=== PATIENT | male | born 1995 | race Caucasian/White ===

== ENCOUNTER 2016-07-09 22:05 | Inpatient (IN) | payer OTHER ==
[~2016-07-09] VITALS: Ht 182.9 cm; Wt 72.8 kg
--- NOTE | 2016-07-09 22:41 | PD ---
HPI Chief Complaint: Psychiatric Symptoms Time Seen by Provider: 22:36 Travel History International Travel<30 days: No Contact w/Intl Traveler<30days: No History of Present Illness HPI Patient is a 20 year old male who presents to ER under rodriguez act. Patient reports that his father committed suicide 2 days ago, that he to his girlfriend yesterday and made a comment that he wanted to hurt himself. Patient reports that today, he went to his fraternity brother's house to talk, [place] that the park police [place] his house as his girlfriend called the home designer. Patient denies suicidal or homicidal ideations at this time. Patient reports that "I was just depressed but I have too much going on for me to hurt myself." Denies si/hi. Denies use of drugs/alcohol. PFSH Social History Alcohol Use: No Tobacco Use: No Allergies-Medications (Allergen,Severity, Reaction): Coded Allergies: Peanut (Verified Allergy, Severe, Anaphylaxis, 07/09/16) Sulfamethoxazole (Verified Allergy, Intermediate, Hives, 07/09/16) Review of Systems General / Constitutional: No: Fever Eyes: No: Visual changes HENT: No: Headaches Cardiovascular: No: Chest Pain or Discomfort Respiratory: No: Shortness of Breath Gastrointestinal: No: Abdominal Pain Genitourinary: No: Dysuria Musculoskeletal: No: Pain Skin: No Rash Neurologic: No: Weakness Psychiatric: Positive: Depression, No: Anxiety, Suicidal Ideations, Substance Abuse, Homicidal Ideation Endocrine: No: Polydipsia Hematologic/Lymphatic: No: Easy Bruising Physical Exam Narrative GENERAL: nad, nontoxic SKIN: Focused skin assessment warm/dry. HEAD: Atraumatic. Normocephalic. EYES: Pupils equal and round. No scleral icterus. No injection or drainage. ENT: No nasal bleeding or discharge. Mucous membranes pink and moist. NECK: Trachea midline. No JVD. CARDIOVASCULAR: Regular rate and rhythm. No murmur appreciated. RESPIRATORY: No accessory muscle use. Clear to auscultation. Breath sounds equal bilaterally. GASTROINTESTINAL: Abdomen soft, non-tender, nondistended. Hepatic and splenic margins not palpable. MUSCULOSKELETAL: No obvious deformities. No clubbing. No cyanosis. No edema. NEUROLOGICAL: Awake and alert. No obvious cranial nerve deficits. Motor grossly within normal limits. Normal speech. PSYCHIATRIC: Appropriate mood and affect; insight and judgment normal. Data Data Last Documented VS Vital Signs Date Time Temp Pulse Resp B/P Pulse Ox O2 Delivery O2 Flow Rate FiO2 07/09/16 22:46 98.0 70 16 106/57 100 Orders Complete Blood Count With Diff (07/09/16 22:36) Comprehensive Metabolic Panel (07/09/16 22:36) Psych Screen (07/09/16 22:36) Drug Screen, Random Urine (07/09/16 22:36) Labs Laboratory Tests Test 07/09/16 07/09/16 22:36 22:40 White Blood Count 5.4 TH/MM3 Red Blood Count 5.19 MIL/MM3 Hemoglobin 15.2 GM/DL Hematocrit 44.5 % Mean Corpuscular Volume 85.7 FL Mean Corpuscular Hemoglobin 29.2 PG Mean Corpuscular Hemoglobin 34.1 % Concent Red Cell Distribution Width 13.5 % Platelet Count 219 TH/MM3 Mean Platelet Volume 9.0 FL Neutrophils (%) (Auto) 49.4 % Lymphocytes (%) (Auto) 36.9 % Monocytes (%) (Auto) 10.5 % Eosinophils (%) (Auto) 2.7 % Basophils (%) (Auto) 0.5 % Neutrophils # (Auto) 2.7 TH/MM3 Lymphocytes # (Auto) 2.0 TH/MM3 Monocytes # (Auto) 0.6 TH/MM3 Eosinophils # (Auto) 0.1 TH/MM3 Basophils # (Auto) 0.0 TH/MM3 CBC Comment DIFF FINAL Differential Comment Sodium Level 138 MEQ/L Potassium Level 3.9 MEQ/L Chloride Level 103 MEQ/L Carbon Dioxide Level 29.0 MEQ/L Anion Gap 6 MEQ/L Blood Urea Nitrogen 15 MG/DL Creatinine 1.13 MG/DL Estimat Glomerular Filtration 82 ML/MIN Rate Random Glucose 94 MG/DL Calcium Level 9.0 MG/DL Total Bilirubin 0.7 MG/DL Aspartate Amino Transf 14 U/L (AST/SGOT) Alanine Aminotransferase 23 U/L (ALT/SGPT) Alkaline Phosphatase 124 U/L Total Protein 8.2 GM/DL Albumin 4.3 GM/DL Urine Opiates Screen NEG Urine Barbiturates Screen NEG Urine Amphetamines Screen NEG Urine Benzodiazepines Screen NEG Urine Cocaine Screen NEG Urine Cannabinoids Screen NEG MDM Medical Decision Making Medical Screen Exam Complete: Yes Emergency Medical Condition: Yes Differential Diagnosis rodriguez act for suicidal idealations, depression Narrative Course Patient is a 20-year-old male who presents to emergency room under Rodriguez act for suicidal statement. Patient reports that his father committed suicide 2 days ago, reports that he made a comment to his girlfriend yesterday that he wanted to hurt himself. Patient reports that he did not mean it, reports that he was just frustrated. [place] today and placed him under Rodriguez act and made him come to the emergency room for evaluation. Patient denies SI or HI at this time. Patient denies drugs or alcohol. Patient here for evaluation under Rodriguez act. Marion Bella DO Jul 09, 2016 22:41
[2016-07-09 22:46] VITALS: BP 106/57; PULSE 70; RESP 16; TEMP 98; O2SAT 100
[2016-07-09 23:01] LABS: AUTOMATED NEUTROPHIL # 2.7 TH/MM3 (1.8-7.7); BASOPHIL % 0.5 % (0.0-2.0); EOSINOPHIL # 0.1 TH/MM3 (0-0.4); EOSINOPHIL % 2.7 % (0.0-4.0); HEMATOCRIT 44.5 % (39.0-51.0); HEMO FLAGS DIFF FINAL; LYMPH % 36.9 % (9.0-44.0); MEAN CELL VOLUME 85.7 FL (80.0-100.0); MEAN CORPUSCULAR HEMOGLOBIN 29.2 PG (27.0-34.0); MEAN CORPUSCULAR HGB CONC 34.1 % (32.0-36.0); MONO % 10.5 % (0.0-8.0); NEUT % 49.4 % (16.0-70.0); PLATELET COUNT 219 TH/MM3 (150-450); RED BLOOD COUNT 5.19 MIL/MM3 (4.50-5.90); RED CELL DISTRIBUTION WIDTH 13.5 % (11.6-17.2); WHITE BLOOD COUNT 5.4 TH/MM3 (4.0-11.0)
[2016-07-09 23:06] LABS: AMPHETAMINE, URINE NEG (NEG); BARBITURATES, URINE NEG (NEG); COCAINE, URINE NEG (NEG)
[2016-07-09 23:30] LABS: ANION GAP 6 MEQ/L (5-15); BLOOD UREA NITROGEN 15 MG/DL (7-18); CHLORIDE 103 MEQ/L (98-107); GLOMERULAR FILTRATION RATE 82 ML/MIN (>89); POTASSIUM 3.9 MEQ/L (3.5-5.1); SODIUM (NA) 138 MEQ/L (136-145)
[2016-07-09 23:34] LABS: ALKALINE PHOSPHATASE 124 U/L (45-117); ALT (GPT) 23 U/L (12-78); AST (GOT) 14 U/L (15-37); TOTAL BILIRUBIN ADULT 0.7 MG/DL (0.2-1.0)
[2016-07-10 00:36] VITALS: BP 136/70; PULSE 67; RESP 18; O2SAT 100
[2016-07-10 01:57] VITALS: BP 129/75; PULSE 61; RESP 18; O2SAT 96
[2016-07-10 06:05] VITALS: BP 111/59; PULSE 57; RESP 18; O2SAT 99
[2016-07-10 11:00] VITALS: BP 123/58; PULSE 60; RESP 18
[2016-07-10 12:45] VITALS: BP 138/67; PULSE 63; RESP 16; TEMP 97.8; O2SAT 100
--- NOTE | 2016-07-11 11:27 | HHI.HP ---
Provisional Diagnosis Admission Date Jul 10, 2016 at 11:56 Sheldon I. Unspecified psychosis Sheldon II. Deferred Sheldon III. No medical history Sheldon IV. Final exams in college Sheldon V. 55 Certification of Person's Competence To Provide Express and Informed Consent I have personally examined Joel Araujo , a person being served at [facility] on, Jul 11, 2016 11:09. Express and informed consent means consent voluntarily given in writing, by a competent person, after sufficient explanation and disclosure of the subject matter involved to enable the person to make a knowing and willful decision without any element of force, fraud, deceit, duress, or other form of constraint or coercion. This person is 18 years of age or older, is not now known to be incompetent to consent to treatment with a guardian advocate, and does not have a health care surrogate or proxy currently making medical treatment decisions. I have found this person to be one of the following: [X] Competent to provide express and informed consent, as defined above, for voluntary admission to this facility and is competent to provide express and informed consent for treatment. He/she has the consistent capacity to make well reasoned, willful, and knowing decisions concerning his or her medical or mental health treatment. The person fully and consistently understands the purpose of the admission for examination/placement and is fully capable of personally exercising all rights assured [place] Incompetent to provide express and informed consent to voluntary admission, and this is incompetent to provide express and informed consent to treatment. The person must be transferred to involuntary status and a petition for a guardian advocate filed with the Circuit Court. [] Refusing to provide express and informed consent to voluntary admission but is competent to provide express and informed consent for treatment. The person must be discharged or transferred to involuntary status. Form shall be completed within 24 hours of a person's arrival at the receiving facility and filed in the clinical record of each person: 1. Admitted on a voluntary basis 2. Permitted to provide express and informed consent to his/her own treatment 3. Allowed to transfer from involuntary to voluntary status 4. Prior to permitting a person to consent to his or her own treatment after having been previously found incompetent to consent to treatment. 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 "Patient reports that his father committed suicide 2 days ago , that he to his girlfriend yesterday and made a comment that he wanted to hurt himself. Patient reports that today, he went to his fraternity brother's house to talk, reports that the police specialist showed up at his house as his girlfriend called the rn admissions." On psychiatric evaluation today patient is calm and cooperative, and very pleasant. He clarifies that yesterday morning he was very confused, he had a very vivid dream of his father committed suicide, he woke up very disturbed and he told to his girlfriend that his father committed suicide and he felt that he wanted to to. His girlfriend became very afraid and called the police, but by the time the police got home he already became aware that it was just a dream and he was wrong. Patient says that this is the second time in his life that he has such a vivid dream. He denies the use of illicit drugs and alcohol. He says that he has been missing his father "I haven't seen him in a year, and I also have been very stressed with final exams". Patient denies depressive symptoms, he reports good mood, he denies anxiety, he denies efrain, he denies psychosis. She denies suicidal or homicidal ideation, he denies visual and auditory hallucinations. His mother and his grandfather use for collateral information, clarified that patient doesn 't have any previous psychiatric history. 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 They do not have any concern about the safety of the patient. They compromised to take the patient back home, to observe him closely. He has a legal pistol that was already withdrawn by grandfather on the situation is clarified.. Review of Systems Constitutional: DENIES: Diaphoretic episodes, Fatigue, Fever, Weight gain, Weight loss, Chills, Dizziness, Change in appetite, Night Sweats Endocrine: DENIES: Heat/cold intolerance, Polydipsia, Polyuria, Polyphagia Eyes: DENIES: Blurred vision, Diplopia, Eye inflammation, Eye pain, Vision loss , Photosensitivity, Double Vision Ears, nose, mouth, throat: DENIES: Tinnitus, Hearing loss, Vertigo, Nasal discharge, Oral lesions, Throat pain, Hoarseness, Ear Pain, Running Nose, Epistaxis, Sinus Pain, Toothache, Odynophagia Genitourinary: DENIES: Sexual dysfunction, Urinary frequency, Urinary incontinence, Urgency, Hematuria, Dysuria, Nocturia, Penile Discharge, Testicular Pain, Testicular Swelling Musculoskeletal: DENIES: Joint pain, Muscle aches, Stiffness, Joint Swelling, Back pain, Neck pain Integumentary: DENIES: Abnormal pigmentation, Nail changes, Pruritus, Rash Hematologic/lymphatic: DENIES: Bruising, Lymphadenopathy Immunologic/allergic: DENIES: Eczema, Urticaria Neurologic: DENIES: Abnormal gait, Headache, Localized weakness, Paresthesias, Seizures, Speech Problems, Tremor, Poor Balance Psychiatric: DENIES: Anxiety, Confusion, Mood changes, Depression, Hallucinations, Agitation, Suicidal Ideation, Homicidal Ideation, Delusions Substance Abuse History Drugs/Alcohol past 12 months Patient denies the use of alcohol and illicit drugs Past Family Social History Coded Allergies: Peanut (Verified Allergy, Severe, Anaphylaxis, 07/09/16) Sulfamethoxazole (Verified Allergy, Intermediate, Hives, 07/09/16) No Active Prescriptions or Reported Meds Family History Patient denies family psychiatric history Social History Patient was born and raised in [place], he lives in [facility] with a roommate, 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 Patient's Strengths (min. 2) Family support, level of education Physical Exam On physical exam, no EPS, no gait disturbances, no tremors, no withdrawal, no stiffness Vital Signs Vital Signs Date Time Temp Pulse Resp B/P Pulse Ox O2 Delivery O2 Flow Rate FiO2 07/10/16 12:45 97.8 63 16 138/67 100 07/10/16 11:00 Room Air Lab Results BAL is negative, toxicology is negative Mental Status Examination Appearance young man, good hygiene, age appearing, [facility], he is calm, cooperative and place Speech: Unremarkable Orientation: x3 Memory: Unremarkable Thought Process: Logical Thought Content: Unremarkable Hallucination Type: None Attention and Concentration: Good Suicidal Ideation: No Previous Suicide Attempts: No Homicidal Ideation: No Previous Homicide Attempts: No Judgment: WNL Affect: Good Affect if Inappropriate: Flat Mood: Appropriate Motor Activity: Normal gait Assessment & Plan Problem List: (1) Unspecified psychosis Assessment & Plan: On psychiatric evaluation patient does not present any significant evidence of depression, anxiety, efrain or psychosis. Patient denies suicidal or homicidal ideation, patient denies visual and auditory hallucinations. He does not have any previous psychiatric history, patient denies the use of drugs and alcohol. Patient is logical, coherent and relevant. Oriented 3, without any gross cognitive impairment observed. Recent episode of delusional belief of father committed suicide after having a very vivid dream about does not seem to be secondary to a primary major psychiatric conditions, but maybe a brief psychotic episode. Patient was widely oriented about the importance of monitoring and exploring this event further with an outpatient psychiatrist. At this moment the patient does not meet criteria for psychiatric admission. Family members, mother and grandfather , are in a complete agreement with this plan. Extensive psychoeducation, and brief supportive psychotherapy provided. No psychotropics indicated. Patient will be discharged back to his apartment along with his mother and grandfather. ICD Code: F29 Assessment & Plan Estimated LOS: Eddy Morales MD Jul 11, 2016 11:26
== END 2016-07-10 16:50 | disposition home or self-care (01) | DRG 885 ==
LOC: NEPD 22:05 → NEDA 07-10 11:56 → H260 07-10 12:45
PROVIDERS: ADMIT Psychiatry & Neurology Psychiatry; ATTEND Psychiatry & Neurology Psychiatry
DX: F29 Unspecified psychosis not due to a substance or known physiological condition (principal); Z88.8 Allergy status to other drugs, medicaments and biological substances; Z91.010 Allergy to peanuts
CPT/HCPCS: 80053; 80307; 85025; 99284